=== PATIENT | male | born 2000 | race African-American/Black ===

== ENCOUNTER 2023-12-14 22:10 | Emergency (ER) | payer OTHER ==
[~2023-12-14] VITALS: Ht 162.6 cm; Wt 81.9 kg
[2023-12-15] MEDS: IBUPROFEN 600MG TAB PO ONE
[2023-12-15] MEDS: methocarbamoL 500 MG TAB PO ONE
[2023-12-15 00:49] VITALS: BP 169/92; TEMP 98.4; O2SAT 97
[2023-12-15] MEDS ORDERED: IBUP-1022 PO (00:53)
[2023-12-15] MEDS ORDERED: METH-1164 PO (00:53)
== END 2023-12-15 01:00 | disposition home or self-care (01) ==
LOC: M ED 22:10
DX: M54.16 Radiculopathy, lumbar region (principal); R01.1 Cardiac murmur, unspecified; Z79.1 Long term (current) use of non-steroidal anti-inflammatories (NSAID); Z79.899 Other long term (current) drug therapy

== ENCOUNTER 2024-07-02 20:21 | Inpatient (IN) | payer MEDICAID, OTHER ==
[~2024-07-02] VITALS: Ht 165.1 cm; Wt 82.0 kg
[~2024-07-02 20:21] MED LIST: IBUP-1022 PO; METH-1164 PO
[2024-07-02 21:42] LABS: HEMATOCRIT 37.4 % (42.0-52.0); HEMOGLOBIN 12.5 g/dl (13.5-17.5); MEAN CORPUSCULAR HEMOGLOBIN 28.2 pg (27.0-33.0); MEAN CORPUSCULAR HGB CONC 33.4 g/dl (32.0-36.5); MEAN CORPUSCULAR VOLUME 84.4 fl (80.0-96.0); PLATELET COUNT, AUTOMATED 270 10^3/uL (150-450); RED BLOOD COUNT 4.43 10^6/uL (4.30-6.10); WHITE BLOOD COUNT 11.1 10^3/uL (4.0-10.0)
[2024-07-02 21:56] LABS: AMPHETAMINES LEVEL URINE NEGATIVE (NEGATIVE); BARBITURATES URINE NEGATIVE (NEGATIVE); BENZODIAZEPINES URINE NEGATIVE (NEGATIVE); COCAINE METABOLITE URINE NEGATIVE (NEGATIVE); METHADONE URINE NEGATIVE (NEGATIVE); OPIATES URINE NEGATIVE (NEGATIVE); PHENCYCLIDINE URINE NEGATIVE (NEGATIVE)
[2024-07-02 21:57] LABS: ETHYL ALCOHOL (ETHANOL) < 0.003 % (0.000-0.010)
[2024-07-02 21:57] LABS: CANNABINOIDS URINE POSITIVE (NEGATIVE)
[2024-07-02 21:59] LABS: ALBUMIN 3.3 G/DL (3.2-5.2); ALKALINE PHOSPHATASE 76 U/L (40-129); ALT/SGPT 56 U/L (7.0-40); AST/SGOT 36 U/L (<34); BILIRUBIN,DIRECT < 0.1 MG/DL (<0.4); BILIRUBIN,TOTAL 0.2 MG/DL (0.3-1.2); BLOOD UREA NITROGEN 17 MG/DL (9-23); CALCIUM LEVEL 9.1 MG/DL (8.5-10.1); CARBON DIOXIDE LEVEL 26 MMOL/L (20-31); CHLORIDE LEVEL 107 MMOL/L (98-107); CREATININE FOR GFR 0.75 MG/DL (0.70-1.30); GLOMERULAR FILTRATION RATE > 60.0 (>60); GLUCOSE, FASTING 132 MG/DL (60-100); POTASSIUM SERUM 3.8 MMOL/L (3.5-5.1); SALICYLATE LEVEL < 3.0 MG/DL (<30); SODIUM LEVEL 141 MMOL/L (136-145)
[2024-07-02 22:06] LABS: THYROID STIMULATING HORMONE 0.308 uIU/ML (0.55-4.78)
[2024-07-03] MEDS ORDERED: OLANZapine 5 MG TAB PO PRN (00:40)
[2024-07-03] MEDS ORDERED: traZODone 50 MG TAB PO PRN (00:40)
[2024-07-03] MEDS ORDERED: ACETAMINOPHEN 325 MG TAB PO PRN (00:40)
[2024-07-03] MEDS ORDERED: MAALOX 30 ML SUSP *UDC PO PRN (00:40)
[2024-07-03] MEDS ORDERED: diphenhydrAMINE 25MG CAP PO PRN (00:40)
[2024-07-03] MEDS ORDERED: MOM 30ML SUSPENSION UDC PO PRN (00:40)
[2024-07-03] MEDS: IBUPROFEN 400MG TAB PO PRN (00:56)
[2024-07-03] MEDS: NICOTINE 14 MG/24 HR TRANSDERMAL TD SCH (09:00)
[2024-07-03] MEDS ORDERED: PRED20TA PO (14:04)
[2024-07-03] MEDS ORDERED: TIZA10TA PO (14:04)
[2024-07-03] MEDS ORDERED: IBUP200C25 PO (14:05)
[2024-07-03] MEDS ORDERED: HOME MED LIST COMPLETE! XX SCH (14:10)
[2024-07-04 06:48] VITALS: BP 160/92; TEMP 98.2; O2SAT 100
[2024-07-05 06:19] VITALS: BP 154/90; TEMP 98; O2SAT 100
== END 2024-07-05 12:43 | disposition home or self-care (01) | DRG 755 ==
LOC: M ED 20:21 → M ED INP 07-03 00:36 → M PSY 07-03 01:24
PROVIDERS: ADMIT Psychiatry & Neurology Neurology; ATTEND Psychiatry & Neurology Neurology
DX: F43.23 Adjustment disorder with mixed anxiety and depressed mood (principal); R45.851 Suicidal ideations; M54.30 Sciatica, unspecified side; D64.9 Anemia, unspecified; R73.09 Other abnormal glucose; E07.89 Other specified disorders of thyroid; R03.0 Elevated blood-pressure reading, without diagnosis of hypertension

== ENCOUNTER 2024-08-05 20:36 | Emergency (ER) | payer MEDICAID, OTHER ==
[~2024-08-05] VITALS: Ht 167.6 cm; Wt 72.7 kg
[~2024-08-05 20:36] MED LIST changes: +IBUP200C25 PO; +PRED20TA PO; +TIZA10TA PO
[2024-08-05] MEDS: methylPREDNISolone 125MG 2ML VIAL IV ONE (21:58)
[2024-08-05] MEDS: diazePAM 10MG/2ML SYRINGE IV ONE (21:58)
[2024-08-05 22:10] LABS: BASO % 0.1 % (0.0-1.0); EOS % 0.2 % (0.0-3.0); HEMATOCRIT 40.6 % (42.0-52.0); HEMOGLOBIN 13.7 g/dl (13.5-17.5); LYMPH # 1.8 10^3/uL (1.5-5.0); LYMPH % 16.9 % (24.0-44.0); MEAN CORPUSCULAR HEMOGLOBIN 28.2 pg (27.0-33.0); MEAN CORPUSCULAR HGB CONC 33.7 g/dl (32.0-36.5); MEAN CORPUSCULAR VOLUME 83.7 fl (80.0-96.0); MONO # 0.7 10^3/uL (0.0-0.8); MONO % 6.4 % (2.0-8.0); NEUTROPHILS % 76.1 % (36.0-66.0); PLATELET COUNT, AUTOMATED 299 10^3/uL (150-450); RED BLOOD COUNT 4.85 10^6/uL (4.30-6.10); WHITE BLOOD COUNT 10.4 10^3/uL (4.0-10.0)
[2024-08-05 22:34] LABS: CK-MB VALUE MASS < 1.0 NG/ML (<3.6)
[2024-08-05 22:36] LABS: BLOOD UREA NITROGEN 15 MG/DL (9-23); CALCIUM LEVEL 9.5 MG/DL (8.5-10.1); CARBON DIOXIDE LEVEL 24 MMOL/L (20-31); CHLORIDE LEVEL 109 MMOL/L (98-107); CREATININE FOR GFR 0.74 MG/DL (0.70-1.30); GLOMERULAR FILTRATION RATE > 60.0 (>60); GLUCOSE, FASTING 103 MG/DL (60-100); MAGNESIUM LEVEL 1.9 MG/DL (1.8-2.4); POTASSIUM SERUM 4.4 MMOL/L (3.5-5.1); SODIUM LEVEL 141 MMOL/L (136-145)
[2024-08-05 22:39] LABS: CPK CREATINE PHOSPHOKINASE 161 U/L (46-171); MB/CK RELATIVE INDEX 0.62 (< OR =4)
[2024-08-05] MEDS ORDERED: MEDR4PAK PO (22:49)
[2024-08-05] MEDS ORDERED: VALI5TAB PO (22:49)
[2024-08-05 23:21] VITALS: BP 168/89; TEMP 97; O2SAT 98
== END 2024-08-05 23:31 | disposition home or self-care (01) ==
LOC: M ED 20:36
DX: R07.9 Chest pain, unspecified (principal); M54.32 Sciatica, left side; S80.02XA Contusion of left knee, initial encounter; W19.XXXA Unspecified fall, initial encounter; Y92.009 Unspecified place in unspecified non-institutional (private) residence as the place of occurrence of the external cause; Y93.89 Activity, other specified; Y99.9 Unspecified external cause status; Z79.899 Other long term (current) drug therapy
CPT/HCPCS: 71045; 72131; 73560; 80048; 82550; 82553; 83735; 83880; 84484; 85025; 93005; 96374; 99284; J2919; J3360